=== PATIENT | female | born 1995 | race Caucasian/White ===

== ENCOUNTER 2021-06-21 14:44 | Emergency (ER) | payer BC ==
[~2021-06-21] VITALS: Ht 157.5 cm; Wt 68.2 kg
[2021-06-21 14:45] VITALS: TEMP 97.8
[2021-06-21 15:51] LABS: BASO # 0.1 K/mm3 (0.0-0.2); BASO % 0.6 % (0.0-2.0); EOS % 0.1 % (0-4.0); GRAN % 78.3 % (42.2-75.2); HEMATOCRIT 49.9 % (37.0-47.0); HEMOGLOBIN 17.3 g/dl (12.5-16.0); LYMPH % 17.3 % (20.0-51.0); MEAN CELL VOLUME 91 fl (80.0-100.0); MEAN CORPUSCULAR HEMOGLOBIN 32 pg (27.0-31.0); MEAN CORPUSCULAR HGB CONC 35 g/dl (33.0-37.0); MEAN PLATELET VOLUME 9.5 fl (7.4-10.4); MONO # 0.4 K/mm3 (0.1-0.6); MONO % 3.4 % (1.7-9.3); PLATELET COUNT 379 K/mm3 (130-400); RED BLOOD COUNT 5.48 M/mm3 (4.10-5.30); REDCELL DISTRIBUTION WIDTH-CV 13.1 % (11.5-14.5)
[2021-06-21 16:12] LABS: ALANINE AMINOTRANSFERASE 45 U/L (0-55); ALBUMIN 4.6 gm/dL (3.5-5.0); ALKALINE PHOSPHATASE 78 U/L (40-150); ANION GAP 23 mmol/L (7-16); AST,SGOT 74 U/L (5-34); BILIRUBIN,TOTAL 0.4 mg/dL (0.2-1.2); BLOOD UREA NITROGEN 20 mg/dL (7-19); CARBON DIOXIDE 17 mmol/L (22-29); CHLORIDE 100 mmol/L (98-107); CREATININE, serum 1.03 mg/dL (0.57-1.11); GLUCOSE 75 mg/dL (70-99); SODIUM 140 mmol/L (136-145)
[2021-06-21 16:13] LABS: ACETAMINOPHEN < 1.0 ug/mL (10-30); SALICYLATE < 5.0 mg/dL (15.0-30.0)
[2021-06-21 16:15] LABS: ALCOHOL(ethanol),MEDICAL 425 mg/dL (0-10)
[2021-06-21 19:24] VITALS: BP 119/85; PULSE 74
== END 2021-06-21 19:26 | disposition home or self-care (01) ==
LOC: COL.ER 14:44
PROVIDERS: Physician Assistant
DX: F10.129 Alcohol abuse with intoxication, unspecified (principal); Y90.8 Blood alcohol level of 240 mg/100 ml or more
CPT/HCPCS: J2060; J7030; J7042

== ENCOUNTER 2021-07-20 17:55 | Emergency (ER) | payer BC ==
[2021-07-21] MEDS ORDERED: EFFEXOR XR75 MG/CAP PO (17:35)
[2021-07-21] MEDS ORDERED: XYREM500 MG/ML PO (17:38)
[2021-07-21] MEDS ORDERED: VYVANSE50 MG PO (17:39)
== END 2021-07-20 18:22 | disposition left against medical advice (07) ==
LOC: COL.ER 17:55
DX: R69 Illness, unspecified (principal)

== ENCOUNTER 2021-07-21 12:20 | Inpatient (IN) | payer BC ==
[~2021-07-21] VITALS: Ht 157.5 cm; Wt 72.8 kg
[2021-07-21 13:25] LABS: BASO # 0.1 K/mm3 (0.0-0.2); BASO % 0.9 % (0.0-2.0); EOS # 0.1 K/mm3 (0.0-0.7); EOS % 0.6 % (0.0-4.0); GRAN # 6.5 K/mm3 (1.4-6.5); GRAN % 75.9 % (42.2-75.2); HEMATOCRIT 41.8 % (37.0-47.0); HEMOGLOBIN 14.8 g/dl (12.5-16.0); LYMPH # 1.6 K/mm3 (1.2-3.4); MEAN CELL VOLUME 90 fl (80.0-100.0); MEAN CORPUSCULAR HEMOGLOBIN 32 pg (27-31); MEAN CORPUSCULAR HGB CONC 35 g/dl (33.0-37.0); MEAN PLATELET VOLUME 9.7 fl (7.4-10.4); MONO # 0.4 K/mm3 (0.1-0.6); MONO % 4.4 % (1.7-9.3); PLATELET COUNT 305 K/mm3 (130-400); RED BLOOD COUNT 4.65 M/mm3 (4.10-5.30); REDCELL DISTRIBUTION WIDTH-CV 13.6 % (11.5-14.5)
[2021-07-21 13:43] LABS: BILIRUBIN,TOTAL 0.5 mg/dL (0.2-1.2); CALCIUM 8.7 mg/dL (8.4-10.2); CREATININE, serum 0.8 mg/dL (0.57-1.11); TOTAL PROTEIN 7.9 gm/dL (6.2-8.1)
[2021-07-21 15:17] LABS: INR 1.1 (0.8-3.0); PROTHROMBIN TIME 11.9 SECONDS (9.7-12.8)
[2021-07-21 15:20] LABS: PARTIAL THROMBOPLASTIN TIME 28.9 SECONDS (26.0-37.0)
[2021-07-21 17:13] VITALS: BP 120/80; PULSE 99; TEMP 98.1
--- NOTE | 2021-07-21 17:25 | NUR ---
Patient to room 327 by wheelchair from the ED with a friend at the bedside. A&Ox4. VSS noticable tremors upper body that friend states are better than when int he ED. Denies pain. IV CDI. Seizure precautions in place. Detox protocol inplace. Nurse oriented the patient to location, room, call light and visitor policy. No further needs expressed. Call light within reach. Bed alarm on
[2021-07-21] MEDS ORDERED: EFFEXOR XR75 MG/CAP PO (17:35)
[2021-07-21] MEDS ORDERED: XYREM500 MG/ML PO (17:38)
[2021-07-21] MEDS ORDERED: VYVANSE50 MG PO (17:39)
[2021-07-21 19:29] LABS: TRICYCLIC ANTIDEPRESS URINE NEGATIVE
--- NOTE | 2021-07-21 19:34 | NUR ---
PT ANXIOUS WITH TREMORS AND RLS. SEE MAR FOR ATIVAN GIVEN.
--- NOTE | 2021-07-21 19:42 | NUR ---
LUGGER SHOWING [address].
[2021-07-21 20:00] VITALS: BP 121/76; PULSE 101; TEMP 98.7
[2021-07-21 21:54] VITALS: BP 138/81; PULSE 106; TEMP 97.4
[2021-07-21 23:03] VITALS: BP 145/89; PULSE 73; PULSE 95; TEMP 98.1; TEMP 98.3
--- NOTE | 2021-07-21 23:46 | NUR ---
pt c/o felling very tremorous. see mar for ativan given.
[2021-07-22] VITALS (8 sets, daily range): BP systolic 126–141; BP diastolic 82–96; PULSE 75–104; TEMP 97.3–99.2
[2021-07-22 06:42] LABS: BASO # 0.1 K/mm3 (0.0-0.2); BASO % 0.8 % (0.0-2.0); EOS # 0.1 K/mm3 (0.0-0.7); GRAN # 3.7 K/mm3 (1.4-6.5); GRAN % 57.6 % (42.2-75.2); HEMATOCRIT 39.7 % (37.0-47.0); HEMOGLOBIN 13.6 g/dl (12.5-16.0); LYMPH % 30.2 % (20.0-51.0); MEAN CELL VOLUME 93 fl (80.0-100.0); MEAN CORPUSCULAR HEMOGLOBIN 32 pg (27-31); MEAN CORPUSCULAR HGB CONC 34 g/dl (33.0-37.0); MEAN PLATELET VOLUME 10.4 fl (7.4-10.4); MONO # 0.6 K/mm3 (0.1-0.6); MONO % 9.1 % (1.7-9.3); PLATELET COUNT 234 K/mm3 (130-400); RED BLOOD COUNT 4.28 M/mm3 (4.10-5.30); REDCELL DISTRIBUTION WIDTH-CV 13.5 % (11.5-14.5)
[2021-07-22 07:04] LABS: CALCIUM 9.2 mg/dL (8.4-10.2); CREATININE, serum 0.8 mg/dL (0.57-1.11); POTASSIUM 3.4 mmol/L (3.5-4.5)
--- NOTE | 2021-07-22 08:00 | NUR ---
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 PATIENT IS ORIENTED X2 BUT DISPLAYS OCCATIONALLY INAPPROPRIATE RESPONSES/COMMUNICATION. AT TIMES, PATIENT SEEMS TO CATCH HERSELF SOUNDING "OFF". VSS. NOTED MILD TREMMORS. PATIENT WANTING TO SLEEP AND ASKING FOR SOMETHING TO HELP. NURSING REORIENTED HER TO DAY TIME HOURS AND APPROPRIATE MEDICATION USES. NO C/O PAIN OR N/V. RIGHT WRIST IV TO INT. PATIENT HAS EXTENSIVE ALCOHOL ABUSE HX. 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 HEAD TO TOE ASSESSMENT COMPLETE. CALL LIGHT IN REACH. BED ALARM ON. SEIZURE PRECAUTION PADS ON.
--- NOTE | 2021-07-22 10:10 | NUR ---
PATIENT IS VISIBLY TREMMORING, UNSTEADY ON HER FEET & APPEARS INCREASINLY ANXIOUS/NERVOUS. GAVE NOW ORDER FOR IV ATIVAN.
--- NOTE | 2021-07-22 14:07 | NUR ---
workers compensation adjuster met with patient at bedside to discuss discharge plan. Patient reports that she lives here in [place] with her boyfriend Ousmane ([phone]).Patient states that she is fully independent with her activities of daily living. She has no oxygen or DME needs at home. Patient reports that she does not have a PCP and she utilizes [facility] for medications. Patient states she does not have a DPOA-HC established and isn't sure of what it really is. Education provided. Patient reports that she has never been and has no children. Patient reports that her parents (Pearl and Daniel Benz [phone]) both live in [place] but asks that we not contact them unless necessary but verbalizes that it is fine if they are her DPOA-HC. Patient is interested in doing inpatient rehab again. Patient verbalizes that she has done inpatient rehab for sd in [place] before and did well. States she has actually been looking for inpatient rehab facilities on her own and has reached out to "[facility]", an online substance abuse [employer] program. Most places she has came into contact with either doesn't accept her insurance or does accept her insurance but that it's too expensive after insurance. Spoke with JAMI Cooley who states that the patient can be screened by [facility] 72 hours after her last drink. Expressed to Lenora that the patient verbalizes she would like to do inpatient rehab again.
--- NOTE | 2021-07-22 17:30 | NUR ---
PATIENT C/O LAMA. LIVER ENZYMES NORMAL, CALLED HOSPITALIST. SEE ORDERS.
--- NOTE | 2021-07-22 21:22 | NUR ---
PT ANXIOUS. THINKING ABOUT LEAVING THE HOSPITAL. ENC TO STAY. TREMORS PT CRYING. SEE MAR FOR ATIVAN GIVEN.
--- NOTE | 2021-07-22 21:38 | NUR ---
PT MORE EMOTIONAL TONIGHT. CRYING AT TIMES.
[2021-07-23] VITALS (9 sets, daily range): BP systolic 111–132; BP diastolic 73–89; PULSE 67–104; TEMP 97.7–98.6
[2021-07-23 07:11] LABS: BASO % 0.7 % (0.0-2.0); EOS # 0.1 K/mm3 (0.0-0.7); EOS % 2.4 % (0.0-4.0); GRAN # 3.4 K/mm3 (1.4-6.5); GRAN % 58.7 % (42.2-75.2); HEMATOCRIT 41.5 % (37.0-47.0); HEMOGLOBIN 13.9 g/dl (12.5-16.0); LYMPH # 1.7 K/mm3 (1.2-3.4); LYMPH % 28.6 % (20.0-51.0); MEAN CELL VOLUME 93 fl (80.0-100.0); MEAN CORPUSCULAR HEMOGLOBIN 31 pg (27-31); MEAN CORPUSCULAR HGB CONC 34 g/dl (33.0-37.0); MEAN PLATELET VOLUME 10.6 fl (7.4-10.4); MONO # 0.5 K/mm3 (0.1-0.6); MONO % 9.1 % (1.7-9.3); PLATELET COUNT 228 K/mm3 (130-400); RED BLOOD COUNT 4.45 M/mm3 (4.10-5.30); REDCELL DISTRIBUTION WIDTH-CV 13.2 % (11.5-14.5)
[2021-07-23 07:32] LABS: CALCIUM 9.4 mg/dL (8.4-10.2); CREATININE, serum 0.74 mg/dL (0.57-1.11); POTASSIUM 3.6 mmol/L (3.5-4.5)
--- NOTE | 2021-07-23 08:00 | NUR ---
Patient layin in the dark, easily awakened with verbal command. A&Ox4. VSS. IV CDI. ETOH protocol in place. Seizure precautions. Denies pain and discomfort. Steady on feet. No further needs expressed. Call light within reach. Bed alarm on
--- NOTE | 2021-07-23 18:00 | NUR ---
Patient had an uneventful day, spent most of the day resting in bed. A&Ox3. VSS. IV CDI. ETOH protocol in place. Seizure precautions in place. Denies pain and discomfort. Eating and tolerating without nausea. Patient asked if she would be leaving tomorrow or sunday. No further needs expressed. Call light within reach
--- NOTE | 2021-07-23 20:22 | NUR ---
ALLOWED PT TO SHOWER STAFF SBA. BACK TO BED. PT IN [facility] TONIGHT.
[2021-07-24] VITALS: BP 110/74; PULSE 78; TEMP 98.2
[2021-07-24 02:00] VITALS: BP 125/77; PULSE 87; TEMP 98.5
--- NOTE | 2021-07-24 02:42 | NUR ---
INTERMITTENT NEEDLE INFILTRATED. PT REFUSED RESTART. NOTIFIED LIBBY FARRELL. CAN LEAVE IT OUT.
[2021-07-24 04:08] VITALS: BP 118/80; PULSE 73; TEMP 97.9
--- NOTE | 2021-07-24 05:22 | NUR ---
PT HAS HAD A GOOD SHIFT. LESS TREMORS AND ANXIETY NOTED. PT LAMA BEEN UP TO BR WITH STEADY GAIT. TELEMETRY CONTINUES.
[2021-07-24 06:19] VITALS: BP 110/76; PULSE 69; TEMP 98
[2021-07-24 07:10] VITALS: BP 112/67; PULSE 83; TEMP 97.6
--- NOTE | 2021-07-24 08:00 | NUR ---
Patient laying in bed, A&Ox4. VSS. No IV access, came out over night and patient not wanting a new IV. Denies pain and discomfort. ETOH protocol in place. Seizure precautions in place. No further needs expressed. Call light within reach
[2021-07-24] MEDS ORDERED: FOLIC ACID 11 MG/TA1 PO (08:48)
[2021-07-24] MEDS ORDERED: THIAMINE 1100 MG/TAB PO (08:49)
[2021-07-24 10:00] VITALS: BP 104/66; PULSE 88; TEMP 97.6
--- NOTE | 2021-07-24 10:41 | NUR ---
CHRISTOPHER Faxed over medical documents to [facility] at [phone] for etho screening.
--- NOTE | 2021-07-24 14:05 | NUR ---
Discharge paperwork reviewed with the patient, patient verbalized an understanding. Patient ambulated independently with nursing staff to the ER entrance. Personal belongings with the patient. No further needs expressed
== END 2021-07-24 14:05 | disposition home or self-care (01) | DRG 897 ==
LOC: COL.ER 12:20 → SURG 14:47
PROVIDERS: Emergency Medicine; Physician Assistant; ADMIT Internal Medicine
DX: F10.139 Alcohol abuse with withdrawal, unspecified (principal); E87.2 Acidosis; F32.A Depression, unspecified; G47.419 Narcolepsy without cataplexy; F17.210 Nicotine dependence, cigarettes, uncomplicated; E87.6 Hypokalemia; Y90.6 Blood alcohol level of 120-199 mg/100 ml; Z20.822 Contact with and (suspected) exposure to COVID-19
CPT/HCPCS: 99223-AI; 99232-AI; 99239; J2060; J2405; J7030

== ENCOUNTER 2021-11-12 20:03 | Emergency (ER) | payer BC ==
[~2021-11-12] VITALS: Ht 157.5 cm; Wt 72.7 kg
[~2021-11-12 20:03] MED LIST: EFFEXOR XR75 MG/CAP PO; FOLIC ACID 11 MG/TA1 PO; THIAMINE 1100 MG/TAB PO; VYVANSE50 MG PO; XYREM500 MG/ML PO
[2021-11-12 21:20] LABS: BASO # 0.1 K/mm3 (0.0-0.2); BASO % 0.8 % (0.0-2.0); EOS # 0.1 K/mm3 (0.0-0.7); EOS % 1.6 % (0.0-4.0); GRAN # 3.7 K/mm3 (1.4-6.5); GRAN % 52.4 % (42.2-75.2); HEMATOCRIT 47.4 % (37.0-47.0); HEMOGLOBIN 16.4 g/dl (12.5-16.0); LYMPH # 2.6 K/mm3 (1.2-3.4); LYMPH % 37.1 % (20.0-51.0); MEAN CELL VOLUME 90 fl (80.0-100.0); MEAN CORPUSCULAR HEMOGLOBIN 31 pg (27-31); MEAN CORPUSCULAR HGB CONC 35 g/dl (33.0-37.0); MEAN PLATELET VOLUME 9.5 fl (7.4-10.4); MONO # 0.6 K/mm3 (0.1-0.6); PLATELET COUNT 369 K/mm3 (130-400); RED BLOOD COUNT 5.29 M/mm3 (4.10-5.30); REDCELL DISTRIBUTION WIDTH-CV 12.4 % (11.5-14.5)
[2021-11-12 21:40] LABS: ALANINE AMINOTRANSFERASE 39 U/L (0-55); ALBUMIN 4.5 gm/dL (3.5-5.0); ALKALINE PHOSPHATASE 70 U/L (40-150); ANION GAP 17 mmol/L (7-16); AST,SGOT 43 U/L (5-34); BILIRUBIN,TOTAL 0.5 mg/dL (0.2-1.2); BLOOD UREA NITROGEN 10 mg/dL (7-19); CALCIUM 9.1 mg/dL (8.4-10.2); CARBON DIOXIDE 19 mmol/L (22-29); CHLORIDE 105 mmol/L (98-107); CREATININE, serum 0.85 mg/dL (0.57-1.11); GLUCOSE 81 mg/dL (70-99); POTASSIUM 3.9 mmol/L (3.5-4.5); SODIUM 141 mmol/L (136-145); TOTAL PROTEIN 8.2 gm/dL (6.2-8.1)
[2021-11-12 22:00] LABS: TSH w REFLEX 0.862 uIU/mL (0.350-4.940)
[2021-11-12 22:06] LABS: ACETAMINOPHEN < 1.0 ug/mL (10-30); SALICYLATE < 5.0 mg/dL (15.0-30.0)
[2021-11-12 22:07] LABS: ALCOHOL(ethanol),MEDICAL 395 mg/dL (0-10)
[2021-11-12 22:13] LABS: MAGNESIUM 2.4 mg/dL (1.6-2.6)
[2021-11-13 08:20] LABS: COLLECTION METHOD CLEAN CATCH
[2021-11-13 08:27] LABS: MUCOUS Present (NOT PRESENT); PH 5 (5-8); SQUAMOUS EPITHELIAL 0-2 /hpf (0-10); URINE APPEARANCE Hazy (CLEAR/HAZY); URINE BACTERIA Rare /hpf (NONE SEEN); URINE BILIRUBIN Negative (NEGATIVE); URINE BLOOD Negative (NEGATIVE); URINE COLOR Yellow (YELLOW); URINE GLUCOSE Negative (NEGATIVE); URINE KETONE Negative (NEGATIVE); URINE LEUKOCYTE ESTERASE Negative (NEGATIVE); URINE NITRATE Negative (NEGATIVE); URINE PROTEIN(semi-quant) Negative (NEGATIVE); URINE RBC 0-2 /hpf (0-2); URINE UROBILINOGEN Negative (NEGATIVE)
[2021-11-13 08:36] LABS: TRICYCLIC ANTIDEPRESS URINE NEGATIVE
[2021-11-13 11:20] VITALS: TEMP 98.2
[2021-11-13 15:38] VITALS: BP 136/92; PULSE 120
== END 2021-11-13 15:38 | disposition home or self-care (01) ==
LOC: COL.ER 20:03
PROVIDERS: Nurse Practitioner
DX: R45.851 Suicidal ideations (principal); F10.129 Alcohol abuse with intoxication, unspecified; F32.A Depression, unspecified; F17.200 Nicotine dependence, unspecified, uncomplicated; Y90.8 Blood alcohol level of 240 mg/100 ml or more
CPT/HCPCS: J2060; J2405; J3411; J7030

== ENCOUNTER 2021-11-14 19:34 | Emergency (ER) | payer BC ==
[~2021-11-14] VITALS: Ht 157.5 cm; Wt 72.7 kg
[2021-11-14 19:39] VITALS: TEMP 98
[2021-11-14 20:26] LABS: BASO # 0.1 K/mm3 (0.0-0.2); BASO % 0.8 % (0.0-2.0); EOS # 0.1 K/mm3 (0.0-0.7); EOS % 1.3 % (0.0-4.0); GRAN # 7.2 K/mm3 (1.4-6.5); GRAN % 70.6 % (42.2-75.2); HEMATOCRIT 48.4 % (37.0-47.0); HEMOGLOBIN 16.9 g/dl (12.5-16.0); LYMPH # 2.4 K/mm3 (1.2-3.4); LYMPH % 23.6 % (20.0-51.0); MEAN CELL VOLUME 91 fl (80.0-100.0); MEAN CORPUSCULAR HEMOGLOBIN 32 pg (27-31); MEAN CORPUSCULAR HGB CONC 35 g/dl (33.0-37.0); MEAN PLATELET VOLUME 9.9 fl (7.4-10.4); MONO # 0.4 K/mm3 (0.1-0.6); MONO % 3.6 % (1.7-9.3); PLATELET COUNT 355 K/mm3 (130-400); RED BLOOD COUNT 5.34 M/mm3 (4.10-5.30); REDCELL DISTRIBUTION WIDTH-CV 12.6 % (11.5-14.5)
[2021-11-14 20:46] LABS: ACETAMINOPHEN < 1.0 ug/mL (10-30); ALANINE AMINOTRANSFERASE 43 U/L (0-55); ALBUMIN 4.8 gm/dL (3.5-5.0); ALKALINE PHOSPHATASE 70 U/L (40-150); ANION GAP 19 mmol/L (7-16); AST,SGOT 47 U/L (5-34); BILIRUBIN,TOTAL 0.3 mg/dL (0.2-1.2); BLOOD UREA NITROGEN 11 mg/dL (7-19); CALCIUM 9.1 mg/dL (8.4-10.2); CARBON DIOXIDE 23 mmol/L (22-29); CHLORIDE 101 mmol/L (98-107); CREATININE, serum 0.94 mg/dL (0.57-1.11); GLUCOSE 85 mg/dL (70-99); POTASSIUM 4.1 mmol/L (3.5-4.5); SALICYLATE < 5.0 mg/dL (15.0-30.0); SODIUM 143 mmol/L (136-145); TOTAL PROTEIN 8.7 gm/dL (6.2-8.1)
[2021-11-14 20:47] LABS: ALCOHOL(ethanol),MEDICAL 375 mg/dL (0-10)
[2021-11-14 23:56] LABS: COLLECTION METHOD CLEAN CATCH
[2021-11-15 02:10] LABS: TRICYCLIC ANTIDEPRESS URINE NEGATIVE
[2021-11-15 02:17] LABS: MUCOUS Present (NOT PRESENT); PH 6 (5-8); URINE APPEARANCE Hazy (CLEAR/HAZY); URINE BACTERIA Rare /hpf (NONE SEEN); URINE BILIRUBIN Negative (NEGATIVE); URINE BLOOD 1+ (NEGATIVE); URINE COLOR Yellow (YELLOW); URINE GLUCOSE Negative (NEGATIVE); URINE KETONE Negative (NEGATIVE); URINE LEUKOCYTE ESTERASE Trace (NEGATIVE); URINE NITRATE Negative (NEGATIVE); URINE PROTEIN(semi-quant) 1+ (NEGATIVE); URINE UROBILINOGEN Negative (NEGATIVE)
[2021-11-15] MEDS ORDERED: LIBRIUM 25M25 MG/CAP PO (11:01)
[2021-11-15 12:31] VITALS: BP 134/87; PULSE 105
== END 2021-11-15 12:40 | disposition home or self-care (01) ==
LOC: COL.ER 19:34
PROVIDERS: Nurse Practitioner
DX: F10.129 Alcohol abuse with intoxication, unspecified (principal); R45.851 Suicidal ideations; F17.200 Nicotine dependence, unspecified, uncomplicated; Y90.6 Blood alcohol level of 120-199 mg/100 ml
CPT/HCPCS: J2060; J2405; J3360; J7030

== ENCOUNTER 2022-01-08 09:58 | Emergency (ER) | payer SELFPAY ==
[~2022-01-08] VITALS: Ht 157.5 cm; Wt 68.2 kg
[~2022-01-08 09:58] MED LIST changes: +LIBRIUM 25M25 MG/CAP PO
[2022-01-08 10:12] VITALS: TEMP 98.4
[2022-01-08] MEDS ORDERED: AMOXICILLIN 50500 MG PO (11:50)
[2022-01-08 11:57] VITALS: BP 135/88; PULSE 95
== END 2022-01-08 11:58 | disposition home or self-care (01) ==
LOC: COL.ER 09:58
DX: S09.90XA Unspecified injury of head, initial encounter (principal); S01.81XA Laceration without foreign body of other part of head, initial encounter; F10.20 Alcohol dependence, uncomplicated; W18.30XA Fall on same level, unspecified, initial encounter

== ENCOUNTER → 2022-01-14 | Outpatient (CLI) | payer SELFPAY ==
[~2022-01-14] MED LIST changes: +AMOXICILLIN 50500 MG PO
[2022-01-14 15:52] VITALS: BP 95/68; PULSE 93; TEMP 97.2
== END ==
LOC: COL.ER 15:40
DX: Z48.02 Encounter for removal of sutures (principal)

== ENCOUNTER → 2022-01-14 | Outpatient (CLI) | payer SELFPAY | LOC: COL.ER 13:40 | DX: Z48.02 Encounter for removal of sutures (principal) ==